=== PATIENT | female | born 1960 | race Caucasian/White ===

== ENCOUNTER 2022-05-24 20:17 | Emergency (ER) | payer OTHER ==
[2022-05-24] MEDS ORDERED: BACTRIM DS TAB1 EACH PO ×2 (21:51→22:30)
[2022-05-24] MEDS ORDERED: VIBRAMYCIN100 MG PO ×2 (21:51→22:30)
== END 2022-05-24 22:33 | disposition home or self-care (01) ==
LOC: FER 20:17
DX: L03.113 Cellulitis of right upper limb (principal); Z23 Encounter for immunization
CPT/HCPCS: 90471; 90715